=== PATIENT | female | born 1965 | race Caucasian/White ===

== ENCOUNTER 2016-12-03 19:01 | Emergency (ER) | payer BC ==
[~2016-12-03] VITALS: Ht 162.6 cm; Wt 120.5 kg
[2016-12-03 19:09] VITALS: BP 199/106; PULSE 78; TEMP 97.9
[2016-12-03] MEDS ORDERED: ATARAX 25MG25 MG/TAB PO (19:35)
[2016-12-03] MEDS ORDERED: PEPCID 20MG TAB20 MG PO (19:35)
[2016-12-03] MEDS ORDERED: PREDNISONE10 MG PO (19:35)
[2016-12-03] MEDS ORDERED: DITROPAN XL15 MG PO (19:46)
[2016-12-03] MEDS ORDERED: LIPITOR 10MG10 MG PO (19:47)
[2016-12-03] MEDS ORDERED: CELEBREX 200MG200 MG PO (19:47)
[2016-12-03] MEDS ORDERED: ZOLOFT 50MG50 MG PO (19:47)
== END 2016-12-03 20:00 | disposition home or self-care (01) ==
LOC: COL.ER 19:01
DX: L50.9 Urticaria, unspecified (principal)
CPT/HCPCS: J7512